=== PATIENT | female | born 1975 | race Caucasian/White ===

== ENCOUNTER → 2017-12-08 | Outpatient (CLI) | payer BC | END | disposition home or self-care (01) | LOC: KCIC MAMMO 09:59 | DX: Z12.31 Encounter for screening mammogram for malignant neoplasm of breast (principal); N64.89 Other specified disorders of breast | CPT/HCPCS: 77067 ==

== ENCOUNTER → 2020-12-05 | Outpatient (CLI) | payer BC ==
--- NOTE | 2020-12-05 16:55 | KCIC ---
EXAM: XR KNEE _3 VIEWS_LT 12/05/2020 11:06 AM CLINICAL INDICATION: Left knee pain anteriorly for a few months COMPARISON: None TECHNIQUE: 3 views of the left knee FINDINGS: No acute fracture. Alignment is normal. Joint spaces are maintained. There are tiny patell ofemoral osteophytes. No joint effusion. IMPRESSION: No acute osseous abnormality. Electronically signed by: Lakia Bolanos MD (12/05/2020 4:52 PM) [id number]
== END ==
LOC: KCIC 11:04
PROVIDERS: ATTEND Family Medicine
DX: M25.762 Osteophyte, left knee (principal)
CPT/HCPCS: 73562

== ENCOUNTER → 2021-08-06 | Outpatient (CLI) | payer BC ==
[~2021-08-06] MED LIST: IOHEXOL 300 MG/ML 100ML VIAL. IV ONE
--- NOTE | 2021-08-06 13:10 | KCIC ---
CT NECK SOFT TISSUE WITH IV CONTRAST DATE: 08/06/2021 9:05 AM INDICATION: Left sided neck mass. Hx. thyroidectomy. Mass left side for more than 6 months. Intermitt ent pain. TECHNIQUE: Axial computed tomography of the neck with intravenous contrast according to the standard neck protocol. 90 cc of Omnipaque 300 was administered intravenously. One or more of the following do se reduction techniques were utilized: Automated exposure control (AEC), Adjustment of mA and/or kV according to patient size, Use of iterative reconstruction technique such as ASiR, CT scan done accor ding to ALARA and image gently/image wisely COMPARISON: None. FINDINGS: Scattered subcentimeter lymph nodes are seen in the neck. None are pathologically enlarged or abnorma lly enhancing. The parotid and submandibular glands are normal. Thyroidectomy. The muscles of the nec k are normal. Vessels of the neck demonstrate normal course, caliber, and enhancement. The visualized aerodigestive tract is normal. The visualized posterior fossa and brain is unremarkable. The visualized orbits and paranasal sinuses are normal. Mild multilevel degenerative disc desiccation. Multilevel spinal canal stenosis secondary to disc pro trusions and marginal osteophytes. Multilevel neural foraminal narrowing secondary to uncovertebral a nd facet arthrosis. The visualized lung apices are clear. IMPRESSION: There are a couple of tiny lymph nodes just deep to the localizing BB, not pathologically enlarged by CT criteria. No mass, fluid collection, or lymphadenopathy. Electronically signed by: Surjit Mendez MD (08/06/2021 1:07 PM) [id number]
--- NOTE | 2021-08-07 08:36 | KCIC ---
Bilateral digital screening mammograms: Reason for examination: Routine screening. Comparison is made to previous study dated 12/08/2017. Interpretation was made with the benefit of CAD. Findings: Breast density: Category C. The breasts are heterogeneously dense, which may obscure small masses. There is an asymmetry in the upper left breast near the axillary tail region on the MLO view. This is located approximately 9 cm from the nipple and measures about 1.3 cm in maximum dimension. It is not seen on the 2018 mammogram. No other evidence for breast mass is seen. There are no suspicious calci fications or architectural distortions. Impression: Developing asymmetry in the left upper breast. Further evaluation with diagnostic mammogram is recomm ended. This should include 2-D and 3-D mediolateral views, XCCL views, and 2-D spot compression view in the MLO projection. If this persists, targeted left breast ultrasound should be performed. Assessment: BI-RADS Category 0: Incomplete: Need additional imaging evaluation. Recommendation: Diagnostic left mammogram. If needed targeted left breast ultrasound. The patient will be notified of results and additional imaging scheduled. This patient's information has been entered into a reminder system for the patient to be notified with the results of her examin ation and a target date for the next mammogram. Electronically signed by: Bruna Alvarado MD (08/07/2021 8:34 AM) [id number]
== END ==
LOC: KCIC MAMMO 08:41
PROVIDERS: ATTEND Family Medicine
DX: Z12.31 Encounter for screening mammogram for malignant neoplasm of breast (principal); R22.1 Localized swelling, mass and lump, neck; M47.812 Spondylosis without myelopathy or radiculopathy, cervical region; M48.02 Spinal stenosis, cervical region; M25.78 Osteophyte, vertebrae; M50.30 Other cervical disc degeneration, unspecified cervical region
CPT/HCPCS: 70491; 77067; Q9967